=== PATIENT | male | born 1965 | race Caucasian/White ===

== ENCOUNTER 2017-06-11 11:56 | Emergency (ER) | payer MEDICAID ==
[~2017-06-11] VITALS: Ht 170.2 cm; Wt 80.0 kg
[2017-06-11 11:58] VITALS: BP 146/88
[2017-06-11] MEDS ORDERED: GLIP5TAB12 PO (12:01)
[2017-06-11] MEDS ORDERED: HYDR-3280 PO (12:01)
[2017-06-11] MEDS ORDERED: METF500T4 PO (12:01)
== END 2017-06-11 17:39 | disposition left against medical advice (07) ==
LOC: ER 12:00
DX: M25.551 Pain in right hip (principal); Z53.21 Procedure and treatment not carried out due to patient leaving prior to being seen by health care provider